=== PATIENT | female | born 1955 | race Two or more races ===

== ENCOUNTER 2021-02-16 17:08 | Emergency (ER) | payer MEDICARE, MEDICAID ==
[~2021-02-16] VITALS: Ht 154.9 cm; Wt 84.5 kg
[~2021-02-16 17:08] MED LIST: ALBU90AE2 INH; ASPI-963 PO; ATOR20TA PO; ATOR20TA37 PO; CHOL10003 PO; DICY20TA4 PO; FLUT16SP24 NAS; LEVO200T53 PO; LISI-170 PO; METH4TAB7 PO; METO25TA91 PO; NITR0.4T28 SL; OMEP-110 PO; OXYC5TAB98 PO; PARO40TA3 PO; PRED20TA PO
[2021-02-16 18:32] LABS: BASOPHILS % (AUTO) 1 % (0-1); EOSINOPHILS % (AUTO) 2 % (1-7); LYMPHOCYTES % (AUTO) 22 % (22-44); MEAN CORPUSCULAR HGB CONC 33.5 g/dL (32.4-35.8); MEAN PLATELET VOLUME 7.8 fL (7.4-10.4); MONOCYTES % (AUTO) 8 % (2-9); NEUTROPHILS % (AUTO) 67 % (42-75); PLATELET COUNT 323 x10^3/uL (130-400); RED BLOOD COUNT 4.53 x10^6/uL (3.82-5.3); RED CELL DISTRIBUTION WIDTH 16.6 % (9.6-15.2)
[2021-02-16 18:43] LABS: ALBUMIN 3.3 g/dL (3.4-5.0); ANION GAP 9 mmol/L (5-15); CALCIUM 9.1 mg/dL (8.5-10.1); CHLORIDE 104 mmol/L (98-107)
[2021-02-16 18:48] LABS: ALANINE AMINOTRANSFERASE 40 U/L (12-78); ALKALINE PHOSPHATASE 85 U/L (45-117); BILIRUBIN,TOTAL 1.2 mg/dL (0.2-1.0); CREATININE 0.65 mg/dL (0.55-1.02); TOTAL PROTEIN 7.8 g/dL (6.4-8.2); TROPONIN I < 0.015 ng/mL (0.000-0.045)
--- NOTE | 2021-02-16 19:44 | NUR ---
TO ROOM FROM LOBBY. NAD.
[2021-02-16 20:28] VITALS: BP 140/63
--- NOTE | 2021-02-16 20:29 | NUR ---
ERP WAS IN TO SEE PT. PT WITH MULTIPLE COMPLAINTS, INCLUDING INTERMITTENT CHEST PAIN, COUGH, "ZIG ZAG LINES THAT I SEE WHEN I GO OUTSIDE", LUMP ON NECK. Addendum: 02/16/21 at 2030 by HBENSON ERP WAS IN TO SEE PT. PT WITH MULTIPLE COMPLAINTS, INCLUDING INTERMITTENT CHEST PAIN, COUGH, SWOLLEN HANDS, "ZIG ZAG LINES THAT I SEE WHEN I GO OUTSIDE", LUMP ON NECK. C/O LUPUS "FLARING UP".
--- NOTE | 2021-02-16 20:30 | NUR ---
ERP BACK IN TO SEE PT.
--- NOTE | 2021-02-16 21:11 | NUR ---
D/C INSTRUCTIONS, MEDS & F/U APPT RV'WD WITH PT, SHE VERBALIZES UNDERSTANDING. INSTRUCTED TO RETURN TO ED FOR WORSENING SYMPTOMS. ASSISTED OUT OF ED VIA WC. PT STATES HER DAUGHTER WILL PICK HER UP.
== END 2021-02-16 21:12 | disposition home or self-care (01) ==
LOC: ED 21:05
DX: J02.8 Acute pharyngitis due to other specified organisms (principal); Z20.822 Contact with and (suspected) exposure to COVID-19; Z88.5 Allergy status to narcotic agent; Z88.8 Allergy status to other drugs, medicaments and biological substances
CPT/HCPCS: 36415; 71045; 80053; 84484; 85025; 93005; 99285; U0003; U0005